=== PATIENT | male | born 1980 | race Caucasian/White ===

== ENCOUNTER 2022-12-23 15:00 | Outpatient (CLI) | payer BC, OTHER ==
--- NOTE | 2022-12-23 15:41 | XRAY Report ---
PROCEDURE: Lumbar Spine 2 View INDICATIONS: LOW BACK PAIN TECHNIQUE: 3 views of the lumbar spine were acquired. COMPARISON: None. FINDINGS: Bones: 5 [id number] vertebrae are present. Mild rightward curvature of the lumbar spine. Mild degenerative changes. There is normal bony alignment. No vertebral body compression fractures. No s uspicious bony lesions. Soft tissues: Overlying bowel gas pattern is normal. No suspicious soft tissue calcifications. IMPRESSION: No acute abnormality of the lumbar spine. Reviewed by: Leno Villalobos on 12/23/2022 3:39 PM PDT Approved by: Leno Villalobos on 12/23/2022 3:39 PM PDT Station ID: [id number]
== END 2022-12-23 15:15 | disposition home or self-care (01) ==
LOC: DI.N 15:00
PROVIDERS: ATTEND Registered Nurse
DX: M47.816 Spondylosis without myelopathy or radiculopathy, lumbar region (principal)

== ENCOUNTER 2023-02-21 16:12 | Outpatient (CLI) | payer BC ==
[2023-02-21 16:41] LABS: BASOPHILS % (AUTO) 0.7 %; EOSINOPHILS # (AUTO) 0.1 10^3/uL (0.0-0.7); EOSINOPHILS % (AUTO) 1.5 %; HCT - HEMATOCRIT 36.9 % (42.0-52.0); HGB - HEMOGLOBIN 12.6 g/dL (14.0-18.0); LYMPHOCYTES # (AUTO) 2.2 10^3/uL (1.5-3.5); LYMPHOCYTES % (AUTO) 41.2 %; MEAN CORPUSCULAR HGB CONC 34.1 g/dL (32.0-36.0); MEAN CORPUSCULAR VOLUME 96.6 fL (80.0-94.0); MEAN PLATELET VOLUME 9.2 fL (7.4-11.4); MONOCYTES # (AUTO) 0.4 10^3/uL (0.0-1.0); MONOCYTES % (AUTO) 6.9 %; NEUTROPHILS # (AUTO) 2.7 10^3/uL (1.5-6.6); NEUTROPHILS % (AUTO) 49.3 %; PLT - PLATELET COUNT 251 10^3/uL (130-450); RED BLOOD COUNT 3.82 10^6/uL (4.70-6.10); RED CELL DISTRIBUTION WIDTH 12.7 % (12.0-15.0); WHITE BLOOD COUNT 5.4 x10^3/uL (4.8-10.8)
[2023-02-21 16:56] LABS: ALBUMIN 3.9 g/dL (3.2-5.5); ALBUMIN/GLOBULIN RATIO 0.5 (1.0-2.2); BILIRUBIN,TOTAL 0.4 mg/dL (0.2-1.0); CALCIUM 9.2 mg/dL (8.5-10.3); POTASSIUM 3.5 mmol/L (3.5-4.5); TOTAL PROTEIN 11.5 g/dL (6.4-8.9)
[2023-02-22 18:07] LABS: KAPPA FREE LT CHAINS SERUM 62.9 mg/L (3.3-19.4); KAPPA/LAMBDA RATIO SERUM 16.13 (0.26-1.65); LAMBDA FREE LT CHAINS SERUM 3.9 mg/L (5.7-26.3)
[2023-02-23 16:08] LABS: BETA-2 MICROGLOBULIN SERUM 3.1 mg/L (0.6-2.4)
[2023-02-23 18:08] LABS: A/G RATIO 0.8 (0.7-1.7); ALBUMIN 4.7 g/dL (2.9-4.4); ALPHA-1-GLOBULIN 0.2 g/dL (0.0-0.4); ALPHA-2-GLOBULIN 0.6 g/dL (0.4-1.0); BETA GLOBULIN 0.9 g/dL (0.7-1.3); GLOBULIN TOTAL 6.7 g/dL (2.2-3.9); IMMUNOGLOBULIN A (IGA) 23 mg/dL (90-386); IMMUNOGLOBULIN G (IGG) 7044 mg/dL (603-1613); IMMUNOGLOBULIN M (IGM) 10 mg/dL (20-172); M-SPIKE 4.8 g/dL (Not Observed); PROTEIN TOTAL 11.4 g/dL (6.0-8.5)
== END 2023-02-21 16:13 | disposition home or self-care (01) ==
LOC: LAB 16:12
PROVIDERS: ATTEND Internal Medicine Hematology & Oncology
DX: C90.00 Multiple myeloma not having achieved remission (principal)
CPT/HCPCS: 36415; 80053; 81599; 82232; 82784; 83521; 83615; 84155; 84165; 85025; 86334

== ENCOUNTER 2023-03-02 08:00 | Outpatient (CLI) | payer BC ==
[2023-03-10 12:09] LABS: CREATININE URINE 71.7 mg/dL (Not Estab.); CREATININE URINE 24HR 1828 mg/24 hr (1000-2000); M-SPIKE % URINE Not Observed % (Not Observed); PROTEIN TOTAL URINE 4.5 mg/dL (Not Estab.); PROTEIN URINE 24HR 115 mg/24 hr (30-150)
== END 2023-03-02 23:59 | disposition home or self-care (01) ==
LOC: LAB 08:00
PROVIDERS: ATTEND Internal Medicine Hematology & Oncology
DX: D47.2 Monoclonal gammopathy (principal)
CPT/HCPCS: 82570; 84156; 84166